=== PATIENT | female | born 1965 | race Caucasian/White ===

== ENCOUNTER 2016-10-06 21:56 | Emergency (ER) | payer MEDICARE, OTHER ==
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
[2016-10-06 20:12] LABS: URINE SOURCE CLEAN CATCH
[2016-10-06 20:18] LABS: URINE APPEARANCE CLOUDY; URINE BILIRUBIN NEG (NEG); URINE BLOOD TRACE (NEG); URINE COLOR YELLOW; URINE GLUCOSE 100 MG/DL (NEG); URINE KETONE NEG (NEG); URINE LEUKOCYTE ESTERASE 3+ (NEG); URINE NITRATE NEG (NEG); URINE PROTEIN NEG (NEG); URINE SPECIFIC GRAVITY 1.009 (1.003-1.035); URINE UROBILINOGEN 0.2 MG/DL (NEG)
[2016-10-06 20:20] LABS: CULTURE INDICATED? YES; URBCS1 AUWI 0-2 /[HPF] (0-2); URINE BACTERIA AUWI 2+ (NEGATIVE); URINE SQUAMOUS EPITHELIAL CELL FEW /[HPF]; UWBCS1 AUWI 100-200 (0-5)
[2016-10-06 21:55] LABS: ALBUMIN SERUM 3.8 g/dL (3.5-5.0); BILIRUBIN, DIRECT 0.1 mg/dL (0.0-0.2); BILIRUBIN,INDIRECT 0.2 mg/dL (0.0-0.9); BILIRUBIN,TOTAL 0.3 mg/dL (0.2-2.0); CALCIUM SERUM 8.6 mg/dL (8.4-10.2); CREATININE SERUM 0.5 mg/dL (0.6-1.4); GLOM FILT RATE Estimated 112.1 mL/min (>60); POTASSIUM 3.2 mmol/L (3.5-5.1); PROTEIN TOTAL SERUM 7.2 g/dL (6.0-8.3)
[~2016-10-06 21:56] MED LIST: LEVEMIR SUBQ; MOTRIN600 MG PO; NEURONTIN800 MG PO; NOVOLOG100 U/M1 SUBQ; SEROQUEL PO; XANAX0.5 M1 PO; ZOLOFT PO
[2016-10-09 11:36] LABS: CHLAMYDIA TRACH Not Detected (Not Detected); N GONOR Not Detected (Not Detected)
[2016-10-11 07:01] LABS: HEP C AB (HEPPAN) Nonreactive (Nonreactive); HEP C AB SIGNAL TO CUTOFF 0.01 ratio (<1.00)
== END 2016-10-06 22:24 | disposition home or self-care (01) ==
LOC: CFTX 21:56
PROVIDERS: Nurse Practitioner
DX: S30.0XXA Contusion of lower back and pelvis, initial encounter (principal); S70.01XA Contusion of right hip, initial encounter; N39.0 Urinary tract infection, site not specified; E11.9 Type 2 diabetes mellitus without complications; Z79.4 Long term (current) use of insulin; Z90.49 Acquired absence of other specified parts of digestive tract; Z90.710 Acquired absence of both cervix and uterus; F17.210 Nicotine dependence, cigarettes, uncomplicated; Z88.0 Allergy status to penicillin; Z79.899 Other long term (current) drug therapy; W22.8XXA Striking against or struck by other objects, initial encounter; N89.8 Other specified noninflammatory disorders of vagina
CPT/HCPCS: 72100; 73502; 80048; 80076; 81003; 82947; 86803; 87086; 87491; 87591; 87808; 87905; 96372; 99284; J0696; J1885

== ENCOUNTER 2016-12-27 10:43 | Emergency (ER) | payer MEDICARE, OTHER ==
--- NOTE | ~2016-12-27 | CR150 ---
[facility] A Service of [facility] & [facility] RADIOLOGY TEXT RESULTS PATIENT: JOHANNY RAMOS LOCATION: [facility] : [birth year] UNIT #: [id number] AGE: [address]: Dwaine Falk MD SEX: F ORDER DR: [id number] [facility] [address] [place], [place] [address] [id number] E MR#: [id number] Acc #: [id number] NAME: JOHANNY RAMOS : 1965 SEX: F STUDY DATE/TIME: 12/27/2016 12:24 UNIT: [facility] ROOM: STUDY DESCRIPTION: CR Hip Min 2 Views Lt Attending Physician: Dwaine Falk M.D. Ordering Physician: Dwaine Falk M.D. Primary Care Physician: No Primary Care Physician MEDICAL IMAGING REPORT This report is preliminary unless electronic signature is present EXAM Left hip 2 views 12/27/16 at 12:24 hours HISTORY Syncopal episode yesterday with left hip pain since syncopal episode. COMPARISON 10/06/2016 FINDINGS AP pelvis and frog lateral view left hip demonstrate no fracture or dislocation. IMPRESSION Negative pelvis and left hip. Dictated by... Rocio Casey M.D. THIS IS AN ELECTRONICALLY VERIFIED REPORT Rocio Casey M.D. at 12/27/2016 2:31 PM GADIEL/dandre TD: 12/27/2016 14:15 JOB #: [id number] MEDICAL IMAGING REPORT Page 1 of 1 COPY
--- NOTE | ~2016-12-27 | EKG ---
PATIENT: JOHANNY RAMOS UNIT #: [id number] Ventricular Rate: 75 BPM Atrial Rate: 75 BPM P-R Interval: 116 ms QRS Duration: 80 ms Q-T Interval: 406 ms QTC Calculation(Bezet): 453 ms P Plano: 1 degrees Calculated R [place]ano: 51 degrees Calculated T [place]ano: 19 degrees Diagnosis Line: Normal sinus rhythm Diagnosis Line: Normal ECG Diagnosis Line: No previous ECGs available Diagnosis Line: Confirmed by TALI VELAZQUEZ MD ([id number]) on Diagnosis Line: 12/27/2016 1:34:35 PM INTERPRETING MD: MARCUS CARNEY
--- NOTE | ~2016-12-27 | CT52 ---
[facility] A Service of [facility] & [facility] RADIOLOGY TEXT RESULTS PATIENT: JOHANNY RAMOS LOCATION: [facility] : 65 UNIT #: [id number] AGE: [address]: Dwaine Falk MD SEX: F ORDER DR: [id number] [facility] [address] [place], [place] [address] [id number] E MR#: [id number] Acc #: [id number] NAME: JOHANNY RAMOS : 1965 SEX: F STUDY DATE/TIME: 12/27/2016 11:58 UNIT: [facility] ROOM: STUDY DESCRIPTION: CT Cervical Spine Wo Cont Attending Physician: Dwaine Falk M.D. Ordering Physician: Dwaine Falk M.D. Primary Care Physician: No Primary Care Physician MEDICAL IMAGING REPORT This report is preliminary unless electronic signature is present EXAM CT cervical spine 12/27 HISTORY Fell, blacked out 12/26/2016 blurry vision, neck pain x2 days. TECHNIQUE This CT exam was performed with one or more of the following radiation dose reduction techniques: automatic control, adjustment of mA and/or kV according to patient size, and iterative reconstruction. FINDINGS CT of the cervical spine performed. Bone soft tissue windows reviewed. Sagittal coronal reconstructions performed. Visualized portions of brain unremarkable. The visualized paranasal sinuses and mastoid air cells are clear. Visualized nasopharyngeal oral pharyngeal, pharyngeal mucosal retropharyngeal spaces larynx subglottic airway superior mediastinum lung apices notable for areas of paraseptal emphysema at the lung apices. There are scattered atherosclerotic arterial calcifications. Small cervical lymph nodes. There is no indication of pathologic adenopathy. Cervical spine shows normal alignment in frontal projection. Straightening normal cervical lordosis in lateral projection. Vertebral body heights normal. Mild narrowing C5-C6, C6-C7 intervertebral disc spaces. No indication of traumatic malalignment. Facet joint relationships are normal. No fracture. C2-C3: Minimal posterior disc bulge. No spinal stenosis or cord contact. Neural foramina patent without evidence of exiting nerve impingement. C3-C4: Posterior disc bulge. Mild mass effect on thecal sac. No cord contact or compression. Neural foramina normal. C4-C5: Mild posterior disc bulge. Possible anterior cord contact without STS. [facility] A Service of [facility] & [facility] & [facility] RADIOLOGY TEXT RESULTS PATIENT: JOHANNY RAMOS LOCATION: [facility] : 65 UNIT #: [id number] AGE: [address]: Dwaine Falk MD SEX: F ORDER DR: cord compression. Mild central spinal canal narrowing. This is more pronounced than on MRI from 2009. The C4-C5 neural foramina are normal. C5-C6: Posterior disc osteophyte complex extending to the bilateral uncovertebral joints. There is anterior cord contact. Effacement of anterior cord contour. Moderate central spinal canal narrowing on the order of about 8 mm. Slightly more pronounced than on prior MRI. Some narrowing of the bilateral lateral recesses right greater than left. Bilateral moderate foraminal narrowing right greater than left. Bilateral exiting nerve irritation is a consideration particularly on the right. C6 - C7: Mild posterior disc osteophyte complex. Narrowing of the anterior thecal sac. Anterior cord contact probable with some mild effacement of the anterior cord contour. This is new compared to 2009. There is moderate narrowing of the bilateral neural foramina due to uncovertebral degenerative change. Probably more pronounced on the right than left overall. C7-T1 T1-T2: Unremarkable. IMPRESSION 1. There is no traumatic fracture or malalignment. 2. Degenerative changes in the cervical spine as described in body of report. See trymu-zo-[id number] descriptions above. Most pronounced at C5 - C6 where there is a broad-based posterior disc osteophyte complex. Anterior cord contact and effacement of anterior cord contour with moderate central spinal canal narrowing. Slightly more pronounced than on MRI from 2009. Associated bilateral foraminal narrowing. Exiting nerve irritation is a possibility particularly on the right. 3. There is a new posterior disc osteophyte complex C6-C7 with narrowing of the anterior thecal space and probable anterior cord contact. Mild central spinal canal narrowing overall. There is some narrowing of the bilateral lateral recesses and bilateral neural foramina at this level. 4. Posterior central disc bulge C4-C5. Probable anterior cord contact without cord compression. More pronounced than in 2009. 5. Carotid arterial calcifications. Correlate clinically and if it would assist in management, consider elective carotid ultrasound. 6. There is no paraspinal traumatic soft tissue abnormality suggested. Dictated by... Erasmo Vergara M.D. THIS IS AN ELECTRONICALLY VERIFIED REPORT Erasmo Vergara M.D. at 12/27/2016 6:31 PM JSK/rnr [facility]. [facility] A Service of [facility] / [facility] RADIOLOGY TEXT RESULTS PATIENT: JOHANNY RAMOS [id number] [birth year] UNIT #: [id number] AGE: [address]: Dwaine Falk MD SEX: F ORDER DR: TD: 12/27/2016 14:59 JOB #: [id number] MEDICAL IMAGING REPORT Page 1 of 1 COPY
--- NOTE | ~2016-12-27 | CT71 ---
[facility] A Service of [facility] RADIOLOGY TEXT RESULTS PATIENT: JOHANNY RAMOS LOCATION: [facility] : 65 UNIT #: [id number] AGE: [address]: Dwaine Falk MD SEX: F ORDER DR: [id number] [facility] [address] [place], [place] [address] [id number] E MR#: [id number] Acc #: [id number] NAME: JOHANNY RAMOS : 1965 SEX: F STUDY DATE/TIME: 12/27/2016 11:58 UNIT: [facility] ROOM: STUDY DESCRIPTION: CT Head Wo Contrast Attending Physician: Dwaine Falk M.D. Ordering Physician: Dwaine Falk M.D. Primary Care Physician: Primary Care Physician No MEDICAL IMAGING REPORT This report is preliminary unless electronic signature is present EXAM CT of the head without contrast INDICATION Blacked out today. Patient has blurry vision, also has had neck pain for [address] images were obtained from vertex of the skull through the skull base. No intravenous contrast material was administered. This CT exam was performed with one or more of the following radiation dose reduction techniques: automatic exposure control, adjustment of mA and/or kV according to patient size, and iterative reconstruction. FINDINGS No acute intracranial hemorrhage is identified. Brain parenchyma is normal in attenuation with no focal areas of decreased attenuation seen. There is no midline shift or mass effect. Ventricles are normal in size. Visualized paranasal sinuses and mastoid air cells appear clear. No calvarial fracture or aggressive osseous abnormality is seen. There are no focal soft tissue abnormalities. IMPRESSION No acute intracranial process identified. Specifically, there is no evidence of acute hemorrhage, mass lesion or acute infarct. Dictated by... Lamar Hill M.D. THIS IS AN ELECTRONICALLY VERIFIED REPORT Lamar Hill M.D. at 12/27/2016 5:06 PM KAY/lalit [facility] A Service of [facility] RADIOLOGY TEXT RESULTS PATIENT: JOHANNY RAMOS [id number] [birth year] UNIT #: [id number] AGE: [address]: Dwaine Falk MD SEX: F ORDER DR: TD: 12/27/2016 13:14 JOB #: [id number] MEDICAL IMAGING REPORT Page 1 of 1 COPY
--- NOTE | ~2016-12-27 | CR72 ---
[facility] A Service of [facility] & [facility] RADIOLOGY TEXT RESULTS PATIENT: JOHANNY RAMOS LOCATION: [facility] : 65 UNIT #: [id number] AGE: [address]: Dwaine Falk MD SEX: F ORDER DR: [id number] [facility] [address] [place], [place] [address] [id number] E MR#: [id number] Acc #: [id number] NAME: JOHANNY RAMOS : 1965 SEX: F STUDY DATE/TIME: 12/27/2016 12:19 UNIT: [facility] ROOM: STUDY DESCRIPTION: CR Chest Single View Portable Attending Physician: Dwaine Falk M.D. Ordering Physician: Dwaine Falk M.D. Primary Care Physician: Primary Care Physician No MEDICAL IMAGING REPORT This report is preliminary unless electronic signature is present EXAM Chest portable 12/27/2016 1219 hours HISTORY 51-year-old woman complaining of syncopal episode yesterday with left hip pain since yesterday. COMPARISON 11/03/2015. FINDINGS Portable upright chest demonstrates slightly low lung volumes. The cardiac, mediastinal and hilar contours are normal. The lungs demonstrate slightly increased vascular markings unchanged. There is no definite edema, pneumonia or effusion. IMPRESSION Slightly low lung volumes with no acute cardiopulmonary findings. No significant change from 11/03/2015. Dictated by... Rocio Casey M.D. THIS IS AN ELECTRONICALLY VERIFIED REPORT Rocio Casey M.D. at 12/27/2016 2:31 PM GADIEL/liliana TD: 12/27/2016 14:09 JOB #: [id number] MEDICAL IMAGING REPORT Page 1 of 1 COPY
[2016-12-27 11:25] LABS: URINE SOURCE CLEAN CATCH
[2016-12-27 11:31] LABS: BASOPHIL# 0.1 X10e3 (0-0.3); BASOPHIL% 1.2 % (0-2.5); EOSINOPHIL# 0.1 X10e3 (0-0.7); EOSINOPHIL% 1.1 % (0.0-7.0); HEMATOCRIT 39.5 % (35.0-45.0); HEMOGLOBIN 13.4 gm/dL (12.0-16.0); LYMPHOCYTE# 2.5 X10e3 (1.0-3.5); LYMPHOCYTE% 30.6 % (17.0-45.0); MEAN CELL VOLUME 89.3 FL (83-96); MEAN CORPUSCULAR HEMOGLOBIN 30.3 PG (28-34); MEAN CORPUSCULAR HGB CONC 33.9 g/dL (30-36); MEAN PLATELET VOLUME 10.2 FL (6.5-11.5); MONOCYTE# 0.3 X10e3 (0-1.0); MONOCYTE% 3.8 % (3.0-12.0); NEUTROPHIL# 5.2 X10e3 (1.5-7.1); NEUTROPHIL% 63.3 % (40-75); PLATELET COUNT 222 X10e3 (140-420); RED BLOOD COUNT 4.42 X10e (3.90-5.30); RED CELL DISTRIBUTION WIDTH 13.6 % (11.0-15.5); WHITE BLOOD COUNT 8.3 X10e3 (4.0-10.5)
[2016-12-27 11:32] LABS: URINE APPEARANCE CLEAR; URINE BILIRUBIN NEG (NEG); URINE BLOOD NEG (NEG); URINE COLOR YELLOW; URINE GLUCOSE 500 MG/DL (NEG); URINE KETONE NEG (NEG); URINE LEUKOCYTE ESTERASE 3+ (NEG); URINE NITRATE NEG (NEG); URINE PH 5.5 (5-8); URINE PROTEIN NEG (NEG); URINE SPECIFIC GRAVITY 1.005 (1.003-1.035); URINE UROBILINOGEN 0.2 MG/DL (NEG)
[2016-12-27 11:34] LABS: DIFF IND NO
[2016-12-27 11:34] LABS: CULTURE INDICATED? YES; URBCS1 AUWI 0-2 /[HPF] (0-2); URINE BACTERIA AUWI 1+ (NEGATIVE); UWBCS1 AUWI 25-50 (0-5)
[2016-12-27 11:45] LABS: URINE SQUAMOUS EPITHELIAL CELL FEW /[HPF]
[2016-12-27 11:57] LABS: AMPHETAMINE NEG (NEG); BARBITURATES NEG (NEG); BENZODIAZEPINES POS (NEG); COCAINE NEG (NEG); MARIJUANA NEG (NEG); OPIATES NEG (NEG); TRICYCLIC ANTIDEPRESSANTS NEG (NEG); U METHADONE NEG (NEG)
[2016-12-27 12:18] LABS: ALBUMIN SERUM 3.9 g/dL (3.5-5.0); BILIRUBIN, DIRECT 0.1 mg/dL (0.0-0.2); BILIRUBIN,INDIRECT 1.1 mg/dL (0.0-0.9); BILIRUBIN,TOTAL 1.2 mg/dL (0.2-2.0); BUN/CREATININE RATIO 12.5; CREATININE SERUM 0.4 mg/dL (0.6-1.4); GLOM FILT RATE Estimated 120.6 mL/min (>60); POTASSIUM 3.2 mmol/L (3.5-5.1); PROTEIN TOTAL SERUM 6.9 g/dL (6.0-8.3)
== END 2016-12-27 14:20 | disposition home or self-care (01) ==
LOC: CED 10:43
PROVIDERS: Emergency Medicine
DX: R55 Syncope and collapse (principal); N39.0 Urinary tract infection, site not specified; M25.552 Pain in left hip; E11.9 Type 2 diabetes mellitus without complications; Z90.49 Acquired absence of other specified parts of digestive tract; Z90.710 Acquired absence of both cervix and uterus; Z89.429 Acquired absence of other toe(s), unspecified side; F17.200 Nicotine dependence, unspecified, uncomplicated; Z88.0 Allergy status to penicillin; Z79.4 Long term (current) use of insulin; Z79.899 Other long term (current) drug therapy
CPT/HCPCS: 36415; 70450; 71010; 72125; 73502; 80048; 80076; 80307; 81003; 82947; 85025; 87086; 93005; 96361; 96374; 99285; J1885